=== PATIENT | female | born 1955 | race Caucasian/White ===

== ENCOUNTER 2017-12-18 12:46 | Outpatient (CLI) | payer OTHER ==
--- NOTE | 2017-12-19 18:37 | Mammography Report ---
DIGITAL SCREENING MAMMOGRAM: 12/18/2017 CLINICAL INDICATION: A 62-year-old with history of late childbearing, family history of breast cancer for screening. COMPARISON: 08/2016, 03/2015, 03/2014, 02/2013, 01/2012, 02/2010. TECHNIQUE: Routine CC and MLO projections were obtained of the breasts. FINDINGS: Scattered fibroglandular tissue is present within the breasts. There are no dominant masses, suspicious microcalcifications, or secondary signs of malignancy. In comparison to the previous studies, there are no significant changes. ASSESSMENT: NO MAMMOGRAPHIC EVIDENCE OF MALIGNANCY. NO SIGNIFICANT INTERVAL CHANGES. RECOMMENDATION: Screening mammography is recommended annually. BIRADS category 1 - negative. STANDARD QUALIFYING STATEMENTS: 1. This examination was reviewed with the aid of Computed-Aided Detection (CAD). 2. A negative or benign imaging report should not delay biopsy if clinically suspicious findings are present. Consider surgical consultation if warranted. More than 5% of cancers are not identified by imaging. 3. Dense breasts may obscure an underlying neoplasm. TD: 12/19/2017 18:35
== END 2017-12-18 12:47 | disposition home or self-care (01) ==
LOC: DI 12:46
PROVIDERS: ATTEND Physician Assistant Medical
DX: Z12.31 Encounter for screening mammogram for malignant neoplasm of breast (principal); Z80.3 Family history of malignant neoplasm of breast
CPT/HCPCS: 77067

== ENCOUNTER 2019-02-26 07:05 | Outpatient (CLI) | payer OTHER ==
--- NOTE | 2019-02-26 10:18 | Ultrasound Report ---
Reason: DIZZINESS,VISUAL CHANGES Procedure Date: 02/26/2019 Accession Number: [id number] / [id number] Procedure: US - Carotid Doppler Complete CPT Code: FULL RESULT: EXAM: BILATERAL CAROTID AND VERTEBRAL ARTERY DUPLEX DOPPLER ULTRASOUND: EXAM DATE: 02/26/2019 09:00 AM CLINICAL HISTORY: Dizziness and giddiness. COMPARISON: None. TECHNIQUE: Grayscale imaging, color Doppler, and duplex spectral Doppler were used to evaluate the carotid and vertebral arteries bilaterally. Static images were obtained. FINDINGS: No significant plaque is identified in the right or left common or internal carotid arteries. Normal antegrade flow is present in bilateral vertebral arteries. VELOCITIES (cm/sec): Right CCA mid: PSV 64 cm/sec CCA dist: PSV 74 cm/sec ICA prox: PSV 75 cm/sec, EDV 29 cm/sec ICA mid: PSV 88 cm/sec, EDV 39 cm/sec ICA dist: PSV 77 cm/sec, EDV 30 cm/sec ECA: PSV 69 cm/sec Vert: PSV 51 cm/sec ICA/CCA: 1.19 Left CCA mid: PSV 91 cm/sec CCA dist: PSV 75 cm/sec ICA prox: PSV 90 cm/sec, EDV 29 cm/sec ICA mid: PSV 86 cm/sec, EDV 34 cm/sec ICA dist: PSV 55 cm/sec, EDV 22 cm/sec ECA: PSV 79 cm/sec Vert: PSV 81 cm/sec ICA/CCA: 0.99 ICA diameter stenosis: Right: <50% by velocity and <70% by NASCET criteria. Left: <50% by velocity and <70% by NASCET criteria. IMPRESSION: 1. No significant bilateral carotid artery plaquing. 2. In the right carotid artery there are no elevated carotid artery velocities to suggest hemodynamically significant stenosis. 3. In the left carotid artery there are no elevated carotid artery velocities to suggest hemodynamically significant stenosis. 4. Normal antegrade flow is present in bilateral vertebral arteries. General Recommendations: Stenosis =50% ICA - Follow-up ultrasound 6-12 months Stenosis <50% ICA - High Risk Patient with plaque - Follow-up ultrasound 1-2 years Normal Study but High Risk Patient - Follow-up ultrasound 3-5 years Management recommendations and diagnostic criteria are based on current IAC endorsed standards in Carotid Artery Stenosis: Grayscale and Doppler Ultrasound Diagnosis. Validated velocity measurements with angiographic measurements and velocity criteria are extrapolated from diameter data as defined by the Society of Radiologists in Ultrasound Consensus Conference Radiology 2003; 229;340-346. RADIA
--- NOTE | 2019-02-26 11:07 | MRI Report ---
Reason: DIZZINESS, VISUAL CHANGES Procedure Date: 02/26/2019 Accession Number: [id number] / [id number] Procedure: MRI - Angio Brain W/O (MRA) CPT Code: FULL RESULT: EXAM MRA BRAIN EXAM DATE: 02/26/2019 08:31 AM. CLINICAL HISTORY: Dizziness and visual changes. COMPARISON: None. TECHNIQUE: Multiplanar, multisequence MRA sequences of the brain were performed. Other: None. Post-processing: Multiplanar 3D MIP reconstructions. IV Contrast: None. FINDINGS: The distal internal carotid arteries are patent. There is no evidence for intracranial vertebrobasilar insufficiency and the vertebral arteries are grossly symmetric. No evidence for intracranial saccular aneurysm. No large artery flow-limiting stenosis, occlusion or filling defect. 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 IMPRESSION: Normal brain MRA. No stenoses or aneurysms. RADIA
== END 2019-02-26 07:06 | disposition home or self-care (01) ==
LOC: DI 07:05
PROVIDERS: ATTEND Physician Assistant Medical
DX: R42 Dizziness and giddiness (principal); H53.9 Unspecified visual disturbance; I51.9 Heart disease, unspecified
CPT/HCPCS: 70544; 93306; 93880

== ENCOUNTER 2019-12-23 13:58 | Outpatient (CLI) | payer OTHER ==
--- NOTE | 2019-12-25 12:47 | CT Report ---
Reason: TOBACCO ABUSE Procedure Date: 12/23/2019 Accession Number: [id number] / [id number] Procedure: CT - Low Dose Lung Cancer Screen CPT Code: Final Report FULL RESULT: EXAM CT LUNG SCREEN EXAM DATE: 12/23/2019 02:10 PM. HISTORY: 64-year-old patient with [id number] smoking history. Currently smoking: No. Years since quittin years. COMPARISON: None. TECHNIQUE: CT examination of the entire thorax without contrast was performed using low-dose technique. Thin section coronal, axial, sagittal and MIP axial images were obtained. In accordance with CT protocol optimization, one or more of the following dose reduction techniques were utilized for this exam: automated exposure control, adjustment of mA and/or KV based on patient size, or use of iterative reconstructive technique. FINDINGS: Nodules: Right upper lobe: None. Right middle lobe: 2 mm, ( image 67, series 4) along the right minor fissure. 4.5 mm, ( image 89, series 4). Right lower lobe: None. Left upper lobe: None. Left lower lobe: 2 mm (image 75, series 4) along the left fissure. 2.5 mm (image 100, series 4). Subpleural 4 mm, image 97, series 4. Emphysema: No significant emphysematous changes. Pleura: Unremarkable. Aorta: Unremarkable. Mediastinum: Normal heart size. Trace pericardial effusion small small hiatal hernia. No enlarged mediastinal or hilar lymph nodes. Visualized thyroid gland is unremarkable. Coronary calcifications: None. Other pulmonary findings: Right middle lobe and lingular scar/atelectasis. No pleural effusions or pneumothorax. Other extrapulmonary findings: Low-attenuation lesion anterior left lobe of the liver measuring 6 mm too small to characterize. Status post cholecystectomy. Nonobstructing lower pole 4.5 mm left renal calculus. Remainder of the included portions of the upper abdomen are unremarkable. Degenerative changes of the thoracic spine. No acute osseous abnormalities. IMPRESSION: Lung-RADS ASSESSMENT CATEGORY: 2 - benign appearance or behavior. Probability of malignancy: Less than 1%. RECOMMENDATION: Recommended follow up based on ACR Lung-RADS Version 1.1 Guidelines with follow-up chest CT in 12 months. RADIA
== END 2019-12-23 13:59 | disposition home or self-care (01) ==
LOC: DI 13:58
PROVIDERS: ATTEND Physician Assistant Medical
DX: Z12.2 Encounter for screening for malignant neoplasm of respiratory organs (principal); Z87.891 Personal history of nicotine dependence

== ENCOUNTER 2019-12-25 11:50 | Outpatient (CLI) | payer OTHER ==
--- NOTE | 2020-01-01 13:02 | Mammography Report ---
Reason: ROUTINE MAMMO Procedure Date: 12/25/2019 Accession Number: [id number] / [id number] Procedure: [facility]N - Screening Mammo w/Morris CPT Code: Final Report FULL RESULT: EXAM: Screening Mammo w/Morris DATE: 12/25/2019 12:57 PM CLINICAL HISTORY: Screening encounter. History of late childbearing. Family history of breast cancer in a sister at the age of 40. TECHNIQUE: (B) - Bilateral CC and MLO views were obtained. COMPARISON: 12/18/2017 through 03/15/2013. PARENCHYMAL PATTERN: (A) - The breast(s) demonstrate(s) scattered fibroglandular densities. FINDINGS: There are no suspicious masses, calcifications, or areas of distortion. IMPRESSION: Negative examination. BI-RADS category 1. RECOMMENDATION: (ANNUAL) - Recommend routine annual screening mammography. BI-RADS CATEGORY: (1) - Negative. STANDARD QUALIFYING STATEMENTS: 1. This examination was not reviewed with the aid of Computer-Aided Detection (CAD). 2. A negative or benign imaging report should not preclude biopsy if clinically suspicious findings are present. 3. Dense breasts may obscure an underlying neoplasm. 4. This examination was reviewed with the aid of 3D breast imaging (tomosynthesis).
== END 2019-12-25 11:51 | disposition home or self-care (01) ==
LOC: DI.N 11:50
DX: Z12.31 Encounter for screening mammogram for malignant neoplasm of breast (principal); Z80.3 Family history of malignant neoplasm of breast
CPT/HCPCS: 77063; 77067

== ENCOUNTER 2021-01-21 11:46 | Outpatient (CLI) | payer OTHER ==
--- NOTE | 2021-01-21 13:03 | CT Report ---
PROCEDURE: Low Dose Lung Cancer Screen INDICATIONS: HX OF SMOKING TECHNIQUE: Noncontrast low-dose 5 mm thick sections acquired from the pulmonary apices to the posterior costophr enic angles. 7 mm thick coronal and sagittal MIP reformats were then acquired. For radiation dose r eduction, the following was used: automated exposure control, adjustment of mA and/or kV according t o patient size. COMPARISON: None. FINDINGS: Image quality: Excellent. Lungs and pleura: There is a small subpleural nodule in the left lower lobe medially measuring 4 mm (series 9 image 41). No abnormal airspace opacity otherwise. Mediastinum: Heart size is normal. No pericardial effusion. No mediastinal adenopathy by size crit eria. Thoracic aorta and central pulmonary arteries are normal in size. Esophagus is normal in yaquelin brianne. No hiatal hernia. Bones and chest wall: No suspicious bony lesions. No vertebral body compression fractures. No axil lili or supraclavicular adenopathy by size criteria. The thyroid is normal in size. Abdomen: Visualized upper abdomen solid organs and bowel loops appear normal in the absence of contr ast. IMPRESSION: Small subpleural nodule measuring 4 mm in the left lower lobe. This warrants surveillance in 12 month s. Lung-RADS Category 2. Recommendation: Annual low-dose CT of the chest for lung cancer screening. Reviewed by: Rey Best MD on 01/21/2021 1:02 PM PDT Approved by: Rey Best MD on 01/21/2021 1:02 PM PDT Station ID: [id number]
== END 2021-01-21 11:47 | disposition home or self-care (01) ==
LOC: DI 11:46
PROVIDERS: ATTEND Physician Assistant Medical
DX: Z12.2 Encounter for screening for malignant neoplasm of respiratory organs (principal); R91.1 Solitary pulmonary nodule; Z87.891 Personal history of nicotine dependence

== ENCOUNTER 2021-01-26 11:02 | Outpatient (CLI) | payer OTHER ==
--- NOTE | 2021-01-26 13:28 | Mammography Report ---
BILATERAL DIGITAL SCREENING MAMMOGRAM 3D/2D: 01/26/2021 CLINICAL: Family history of breast cancer. Routine screening. Comparison is made to exams dated: 12/25/2019 mammogram, 12/18/2017 mammogram, 09/02/2016 mammogram, mammogram, 04/25/2014 mammogram, and 03/29/2013 mammogram - [facility]. The tissue of both breasts is predominantly fatty. There is a stable benign appearing focal asymmetry in the left breast. No significant masses, calcifications, or other findings are seen in either breast. There has been no significant interval change. IMPRESSION: BENIGN There is no mammographic evidence of malignancy. A 1 year screening mammogram is recommended. This exam was interpreted at Station ID: [id number]. NOTE: For mammograms, a report in lay terms will be sent to the patient. Approximately 15% of breast malignancies will not be visualized mammographically. In the management of a palpable breast mass, a negative mammogram must not discourage biopsy of a clinically suspicious lesion. Electronically Signed By: Alberto Cruz acr/:01/26/2021 11:59:03 ACR BI-RADS Category 2: Benign Finding(s) 3342F PARENCHYMAL PATTERN: (F) - The breast(s) demonstrate(s) diffuse fatty replacement. BI-RADS CATEGORY: (2) - 2 RECOMMENDATION: (ANNUAL) - Recommend routine annual screening mammography. [id number] 1 year screening LATERALITY: (B)
== END 2021-01-26 11:03 | disposition home or self-care (01) ==
LOC: DI.N 11:02
DX: Z12.31 Encounter for screening mammogram for malignant neoplasm of breast (principal); Z80.3 Family history of malignant neoplasm of breast

== ENCOUNTER 2022-11-23 10:08 | Outpatient (CLI) | payer MEDICARE, OTHER ==
--- NOTE | 2022-11-29 11:41 | Mammography Report ---
BILATERAL DIGITAL SCREENING MAMMOGRAM 3D/2D: 11/23/2022 CLINICAL: Routine screening. Comparison is made to exams dated: 01/26/2021 mammogram, 12/25/2019 mammogram, 12/18/2017 mammogram, mammogram, 04/21/2015 mammogram, and 04/25/2014 mammogram - [facility]. There are scattered areas of fibroglandular density in both breasts (category b / 25%-50% glandular t issue). There is a stable benign focal asymmetry in the left breast. No significant masses, calcifications, or other findings are seen in either breast. There has been no significant interval change. IMPRESSION: BENIGN There is no mammographic evidence of malignancy. A 1 year screening mammogram is recommended. This exam was interpreted at Station ID: [id number]. NOTE: For mammograms, a report in lay terms will be sent to the patient. Approximately 15% of breast malignancies will not be visualized mammographically. In the management of a palpable breast mass, a negative mammogram must not discourage biopsy of a clinically suspicious lesion. Electronically Signed By: Saman Simms M.D. atconrad/penrad:11/29/2022 08:00:32 ACR BI-RADS Category 2: Benign Finding(s) 3342F PARENCHYMAL PATTERN: (A) - The breast(s) demonstrate(s) scattered fibroglandular densities. BI-RADS CATEGORY: (2) - 2 RECOMMENDATION: (ANNUAL) - Recommend routine annual screening mammography. [id number] 1 year screening LATERALITY: (B)
== END 2022-11-23 10:09 | disposition home or self-care (01) ==
LOC: DI.N 10:08
PROVIDERS: ATTEND Physician Assistant
DX: Z12.31 Encounter for screening mammogram for malignant neoplasm of breast (principal)